=== PATIENT | female | born 1950 | race Caucasian/White ===

== ENCOUNTER → 2017-08-01 | Day surgery (SDC) | payer MEDICARE, OTHER ==
[~2017-08-01] VITALS: Ht 165.1 cm; Wt 91.2 kg
[~2017-08-01] MED LIST: *morphine SULFATE 8 MG/ML PERIprocedure ONLY ONE; ACETAMINOPHEN 1000 MG/100 ML 100 ML IV ONE; BLAC540C PO; CALC0.25 PO; CHLORHEXIDINE GLUCONATE 2 % 1 PACK (2 CLOTHS) TOPICAL PRN; CIPR-9 PO; CIPROFLOXACIN 400 MG PREMIX 200 ML ONE; CRANCAP2 PO; DEXAMETHASONE SOD PHOS 4 MG/ML VIAL IV ONE; DO NOT ADM ANY ANTICOAGULANT DRUGS PRN; FLUO40CA PO; FOSI20TA PO; FURO20TA PO; GLYCOPYRROLATE 1 MG/5 ML SYRINGE IV PUSH ONE; INSULIN HUMAN REGULAR 1,000 UNITS/10 ML VIAL SQ PRN; LACTATED RINGER'S 1000 ML IV PRN; LIDOCAINE HCL 1% PF 5 ML SYRINGE OTHER ONE; METOPROLOL TARTRATE 25 MG TAB PO PRN; MIDAZOLAM HCL 2 MG/2 ML VIAL IV ONE; MIRA50TA PO; NEOSTIGMINE 3 MG/3 ML SYR IV ONE; NORT10CA PO; ONDANSETRON HCL 4 MG/2 ML VIAL IV PUSH ONE; PERC5TAB12 PO; POVIDONE IODINE 5% (ANTISEPSIS KIT) 4 APPLICATIONS EACH NARE PRN; PROPOFOL 200 MG/20 ML AMP IV ONE; ROCURONIUM INJ 50 MG/5 ML SYRINGE IV PUSH ONE; ROSU20 PO; SODIUM CHLORID 0.9% 500 ML IV PRN; VOLT1GEL16 TP; [UNRECOGNIZED DRUG - CODE] PO; ceFAZolin 2 GM PREMIX 50 ML IV SCH; oxyCODONE/ACETAMINOPHEN 5 MG/325 MG TAB PO PRN
[2017-08-01 18:58] VITALS: BP 112/62; PULSE 60; RESP 20; TEMP 98; O2SAT 100
--- NOTE | 2017-08-02 09:17 | MP ---
cc: RICK ZAPATA MD DATE OF SURGERY 08/01/17 PREOPERATIVE DIAGNOSIS Bladder cancer. POSTOPERATIVE DIAGNOSIS Bladder cancer. SURGEON Rick Zapata MD. PROCEDURE PERFORMED 1. Cystoscopy. 2. Transurethral resection of bladder tumor. PERTINENT FINDINGS 1. Multiple areas of patchy erythema noted throughout the bladder, mainly located along the right and lateral bladder wall. 2. Successful resection down to muscle in several areas of the bladder. 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 Biopsy did not have any muscle in the specimen. She presents today for TURBT with deeper specimen sampling. PROCEDURE IN DETAIL Proper informed consent was obtained. The patient brought to the operating room and laid supine on the operating room table. Bilateral lower extremities SCDs were placed. Patient was prepped and draped in the standard surgical fashion. After proctoscopy was completed, the rigid cystoscope was inserted through the urethra into the bladder. Views of the urethral mucosa revealed no evidence of abnormality or lesions. Upon entering the bladder bilateral orifices were identified. The remainder of the bladder was inspected and there are several areas of patchy erythema noted throughout the posterior and right lateral bladder wall. Prior areas of biopsy were identified. At this point the posterior biopsy was then resected using the loop resectoscope. Deep resection was carried out. The right lateral bladder wall was then resected, almost half of the right lateral bladder wall as it did appear to be somewhat abnormal appearance and concerning for malignancy. The biopsy site on this right lateral bladder wall was also biopsied. Dissection biopsy was taken of the left lateral bladder wall as well as the trigone/base. Some resection was also carried out of the right posterior dome area. After adequate resection was carried out down to what appeared to be the level of the muscle meticulous hemostasis was achieved. Following this the patient's bladder was emptied and the specimen was removed and sent for pathology review. Again, the bladder was inspected with hemostasis. At this point a 20-[place] urethral catheter was placed. The patient was then awoken from anesthesia, taken to the PACU in good and stable condition. The patient tolerated the procedure well with no complications. DISPOSITION The patient discharged home to follow up in clinic. Her Fernandes catheter may be removed on Saturday morning. Mary Estes/EO /4:46 PM /8:51 AM MTDD
--- NOTE | 2017-08-02 15:56 | EKG ---
Date Performed: 08/01/2017 Time Performed: 13:11:59 PTAGE: 67 years EKG: Sinus rhythm LOW QRS VOLTAGE IN PRECORDIAL LEADS BORDERLINE ECG NO PREVIOUS TRACING DOCTOR: Brittany Swanson Interpretating Date/Time 08/02/2017 15:55:21
== END | disposition home or self-care (01) ==
LOC: HSDC 11:28
PROVIDERS: ATTEND Urology
DX: C67.8 Malignant neoplasm of overlapping sites of bladder (principal); I10 Essential (primary) hypertension; E78.5 Hyperlipidemia, unspecified; Z01.810 Encounter for preprocedural cardiovascular examination
CPT/HCPCS: 00912; 52234; 88307; 88341; 88342; 93005; J0131; J0744; J1100; J2250; J2270; J2405; J2710; J3010; J7120